=== PATIENT | male | born 1945 | race Caucasian/White ===

== ENCOUNTER → 2020-04-30 10:56 | Outpatient (BNVA) | payer MEDICARE, SELFPAY | PROVIDERS: Family Provider Nurse Practitioner; Visit Provider Urology | DX: N40.1 Benign prostatic hyperplasia with lower urinary tract symptoms (principal); N13.8 Other obstructive and reflux uropathy; R97.20 Elevated prostate specific antigen [PSA]; R35.0 Frequency of micturition | CPT/HCPCS: 81001; 84153 ==

== ENCOUNTER → 2021-04-29 10:20 | Outpatient (BNVA) | payer MEDICARE, SELFPAY | PROVIDERS: Family Provider Nurse Practitioner; PCP Internal Medicine; Visit Provider Urology | DX: N13.8 Other obstructive and reflux uropathy (principal); N40.1 Benign prostatic hyperplasia with lower urinary tract symptoms; R97.20 Elevated prostate specific antigen [PSA] | CPT/HCPCS: 81003; 84153 ==

== ENCOUNTER → 2021-05-07 09:55 | Outpatient (BNVA) | payer MEDICARE, SELFPAY | PROVIDERS: Family Provider Nurse Practitioner; PCP Internal Medicine; Visit Provider Nurse Practitioner Family | DX: I10 Essential (primary) hypertension (principal); R60.9 Edema, unspecified; Z09 Encounter for follow-up examination after completed treatment for conditions other than malignant neoplasm; Z86.69 Personal history of other diseases of the nervous system and sense organs; Z68.32 Body mass index [BMI] 32.0-32.9, adult | CPT/HCPCS: 80053; 80061; 84439; 84443; 85025 ==

== ENCOUNTER 2021-08-23 10:22 | Outpatient (CLI) | payer MEDICARE, SELFPAY ==
--- NOTE | 2021-08-23 10:33 | CT_ITS ---
WS: [id number] LDCT LUNG CANCER SCREENING HISTORY: Z72.0 - Tobacco use TECHNIQUE: Axial imaging performed from the apices to 1 cm below the costophrenic angles. Coronal and sagittal reformats are submitted with axial MIP series. All CT scans at [facility] use at least one of these dose optimization techniques: automated exposure control; mA and/or kV adjustment per patient size (includes targeted exams where dose is matched to clinical indication); or iterativ e reconstruction. DLP: 58.54 mGy.cm DIvol: 1.58 mGy COMPARISON: None available. Diagnostic quality: Satisfactory Lung Nodules: No pulmonary nodule or endobronchial lesions. Lungs: No abnormality. Heart: Mildly enlarged heart with mild coronary artery CALCIFICATION. Other findings: There is a large soft tissue mass inseparable from the RIGHT thyroid. Mass extends durham bsternally and is causing significant mass effect on the trachea. Mass extends over a length of 8.4 c m x 4.9 x 4.0 cm and contains some peripheral calcification. Favor this is probably a thyroid nodular goiter. Mild atherosclerosis aorta and ectasia. CT/CT lung screening [id number] IMPRESSION: LUNG-RADS: 1S-Negative with Significant Findings FOLLOW UP: 12 Month: Continue annual screening with LDCT OTHER FINDINGS (S MODIFIER): Large RIGHT paratracheal mass causing deviation of the trachea to the LEFT. Favor this is probably a large substernal thyroid or goiter. Recommend additional imaging at this time. Thyroid ultrasound would be helpful. This will not identified or evaluated the entire nodule as it extends substernal. Neck CT with IV contrast may also be ne cessary.
== END 2021-08-23 10:23 | disposition home or self-care (01) ==
LOC: RAD 10:27
PROVIDERS: PCP Internal Medicine; Visit Provider Nurse Practitioner Family
DX: Z12.2 Encounter for screening for malignant neoplasm of respiratory organs (principal); Z72.0 Tobacco use
CPT/HCPCS: 71271

== ENCOUNTER 2021-09-13 13:51 | Outpatient (CLI) | payer MEDICARE, SELFPAY ==
--- NOTE | 2021-09-13 14:00 | CTR_ITS ---
PROCEDURE INFORMATION: Exam: CT Neck With Contrast Exam date and time: 09/13/2021 2:00 PM Age: 76 years old Clinical indication: Mass, lump, or swelling in neck; Right; Additional info: R22.2 - localized swelling, mass and lump, trunk TECHNIQUE: Imaging protocol: Computed tomography images of the neck with contrast. Total images: 610 Radiation optimization: All CT scans at this facility use at least one of these dose optimization techniques: automated exposure control; mA and/or kV adjustment per patient size (includes targeted exams where dose is matched to clinical indication); or iterative reconstruction. Contrast material: OMNI 300; Contrast volume: 95 ml; Contrast route: INTRAVENOUS (IV); COMPARISON: CT lung screening [id number] 08/23/2021 10:38 AM RADIATION DOSE METRICS: Total DLP (mGy-cm): 506.76 FINDINGS: Nasopharynx: Unremarkable. Dental: Numerous missing teeth and dental caries. Oropharynx: Unremarkable. No significant tonsillar enlargement. Hypopharynx: Unremarkable. Larynx: Unremarkable. Normal epiglottis. Retropharyngeal space: Unremarkable. Submandibular/Parotid glands: Normal. Glands are normal in size. Thyroid: Large substernal thyroid goiter. The right thyroid measures approximately 9.8 cm x 5.3 cm x 6 cm. The left thyroid measures approximately 7.1 cm x 2.7 cm x 5.6 cm. Multinodular/multicystic thyroid goiter. Large right mixed solid and cystic thyroid nodule with peripheral dystrophic appearing calcifications estimated dimensions 6.9 cm x 3.9 cm x 4.4 cm. Lymph nodes: Unremarkable. No lymphadenopathy. Trachea: Visualized trachea is unremarkable. Lungs: Unremarkable as visualized. Bones/joints: No visible acute osseous abnormality. 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 Mild scoliotic curvature. Osteopenia. Soft tissues: Unremarkable. No significant soft tissue swelling. CT/CT neck w con* [id number] IMPRESSION: Large substernal multinodular/multicystic thyroid goiter as detailed in text above. Further evaluation with non-emergent thyroid ultrasound is recommended. COMMENTS: Consistent with the [employer]'s Incidental Findings Committee white paper (J Am Jose Raul Radiol 2015): In patients aged 35 years and older with an incidental thyroid nodule equal to or greater than 1.[address], MRI or extrathyroidal US, further evaluation with dedicated thyroid US is recommended for patients with normal life expectancy and without comorbidities. For smaller nodules without suspicious features, no further evaluation or follow up is recommended. Radiation Dose CTDIVOL = (mGy): DLP = 506.76 (mGy-cm)
[2021-09-13 15:42] LABS: Blood Urea Nitrogen 16 mg/dL (8-23)
[2021-09-13] MEDS: iohexol 300 mg/mL 100 mL Btl IV (15:59)
== END 2021-09-13 13:52 | disposition home or self-care (01) ==
LOC: RAD 13:55
PROVIDERS: PCP Family Medicine; Visit Provider Nurse Practitioner Family
DX: R22.2 Localized swelling, mass and lump, trunk (principal); R22.1 Localized swelling, mass and lump, neck; E04.2 Nontoxic multinodular goiter
CPT/HCPCS: 36415; 70491; 82565; 84520

== ENCOUNTER 2021-09-15 10:59 | Observation (INO) | payer MEDICARE, SELFPAY ==
[2021-09-15 11:09] VITALS: BP 146/100; PULSE 67; RESP 16; TEMP 36.1; O2SAT 96; BMI 32.0
--- NOTE | 2021-09-15 11:42 | W.ED.GENADLT ---
HPI - General Adult General: Chief complaint: GI Bleed Stated complaint: PASSING BLOOD IN STOOL Time Seen by Provider: 09/15/21 11:13 History of Present Illness: HPI narrative: 76-year-old male with a history of aspirin use only presenting to the emergency room with one episode of dark stool. Patient was on the toilet earlier today when he noticed dark tarry stool. Patient denies any use of iron or Pepto-Bismol. Patient has no focal complaints abdominal family history of alcohol use or cirrhosis. Patient denies any lightheadedness, nausea/vomiting, hematemesis, fever chills, or other complaints at this time. No trauma to the abdomen. Denies any anticoagulation use. Onset: earlier this AM Duration: ongoing Location:home Severity:moderate Review of Systems Narrative: Constitutional: No fever, no chills. HEENT: No vision changes CV: No chest pain, no palpitations PULM: no cough, no dyspnea. GI: No abdominal pain, no N/V/D. +melena : No dysuria MSKEL: No muscle pain SKIN: No new rashes, no lesions. NEURO: No headache, no focal weakness. HEME: No visible bruises PSYCH: Normal mood PFSH ED PFSH: Medical History BMI 32.0-32.9,adult BPH with obstruction/lower urinary tract symptoms Elevated PSA HTN (hypertension) Hyponatremia Peripheral edema Peritracheal mass Screening for malignant neoplasm of colon declined Thyroid goiter Right paratracheal / substernal Thyroid mass Tobacco use Surgical History (Updated 09/15/21 @ 15:03 by Eduar Main MD) History of rectal fissure Hx of shoulder surgery Right Hx of tonsillectomy Social History (Updated 09/15/21 @ 16:20 by Elias Urias MD) Quit status (tobacco): has quit using tobacco Year quit tobacco: 2019 Alcohol intake: current Alcohol intake frequency: 3 or more drinks per day Alcohol type: beer Adopted: No Caregiver/support person: No Lives independently: No Household members: spouse Marital status: Current occupational status: retired Physical Exam Narrative: EXAM NARRATIVE: Head: Atraumatic Eyes: PERRL, conjunctiva without injection ENT: Mucous membrane moist NECK: Supple, ROM intact LUNGS: LCTAB, no crackles/rhonchi CV: RRR ABDOMEN: Soft, nontender in all quadrants EXTREMITY: Normal ROM SKIN: No rash or erythema NEURO: Awake and alert, no focal motor deficits PSYCH: Normal mood and affect RECTAL: + mild melena and hematochezia Course Vital Signs: Vital signs: Vital Signs Temperature 98.3 F 09/16/21 11:19 Pulse Rate 65 09/16/21 11:19 Respiratory Rate 18 09/16/21 11:19 Blood Pressure 169/90 09/16/21 08:04 Pulse Oximetry 97 09/16/21 11:19 MDM - General Adult MDM Narrative: Medical decision making narrative: 76-year-old male presents the emergency room with one episode of dark tarry stool. On exam, patient is hemodynamically stable without any focal abdominal tenderness to palpation. Rectal exam is significant for hematochezia and melena H&H appears to be stable today patient does not meet criteria for type and screen. Patient received 80 mg IV Protonix. 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 Patient has a Glascow Blatchford score of 1, which indicates need for urgent endoscopy. Patient at this time elects for admission. I discussed case with Dr. Main who agrees with urgent admission. This was discussed with Dr. Jhaveri for inpatient observation, serial H&H and urgent endoscopy. Disposition: Admission Lab Data: Labs: Lab Results 09/15/21 09/15/21 09/15/21 12:21 12:21 12:21 WBC 9.1 10^3/uL 10^3/ uL (4.0-10.0) RBC 5.21 10^6/uL 10^6 /uL (4.1-5.3) Hgb 16.2 g/dL g/dL (11.7-16.6) Hct 46.5 % % (42.0-52.0) MCV 89.3 fl fl (80-94) MCH 31.1 pg pg (28.0-34.0) MCHC 34.8 g/dL g/dL (30.0-36.0) RDW 12.6 % % (12.1-15.1) Plt Count 293 10^3/cmm 10^3 /cmm (130-400) MPV 10.4 fL fL (7.4-10.4) Neut % (Auto) 71.9 % % Lymph % (Auto) 18.9 % % [place] % (Auto) 7.2 % % Eos % (Auto) 0.8 % % Baso % (Auto) 0.8 % % Neut # (Auto) 6.57 10^3/uL 10^3 /uL (1.8-7.7) Lymph # (Auto) 1.7 10^3/uL 10^3/ uL (0.8-4.8) [place] # (Auto) 0.7 10^3/uL 10^3/ uL (0.2-0.9) Eos # (Auto) 0.1 10^3/uL 10^3/ uL (0.0-0.8) Baso # (Auto) 0.1 10^3/uL 10^3/ uL (0.0-0.1) Nucleated RBC % (a uto) 0 % % Nucleated RBCs # 0.0 /100WBC /100W BC PT INR APTT Sodium 141 mmol/L mmol/L (136-145) Potassium 3.5 mmol/L mmol/L (3.5-5.1) Chloride 99 mmol/L mmol/L (98-107) Carbon Dioxide 27 mmol/L mmol/L (22-29) Anion Gap 18.5 (5-19) BUN 17 mg/dL mg/dL (8-23) Creatinine 0.8 mg/dL mg/dL (0.7-1.2) GFR Calculation Not Reportable Glucose 100 mg/dL mg/dL (65-115) Calculated Osmolal ity 294 mOsm/kg mOsm/ kg (285-295) Calcium 10.1 mg/dL mg/dL (8.5-10.5) Iron 68 ug/dL ug/dL (59-158) TIBC 314 mcg/dl mcg/dl % Saturation 21.6 % % (20-50) Unsat Iron Binding 246 ug/dL ug/dL (112-347) Ferritin 126 ng/mL ng/mL (30-400) Total Bilirubin 0.5 mg/dL mg/dL (0.15-1.2) AST 19 U/L U/L (0-40) ALT 20 U/L U/L (0-41) Alkaline Phosphata se 53 IU/L IU/L (40-130) Total Protein 7.0 g/dL g/dL (6.6-8.7) Albumin 4.3 g/dL g/dL (3.5-5.2) Globulin 2.7 g/dL g/dL (1.3-4.6) Lipase 26 U/L U/L (13-60) TSH 1.43 uIU/mL uIU/m L (0.27-4.20) Blood Type Rho(D) Type Antibody Screen 09/15/21 09/15/21 09/15/21 12:21 12:43 12:43 WBC RBC Hgb Hct MCV MCH MCHC RDW Plt Count MPV Neut % (Auto) Lymph % (Auto) [place] % (Auto) Eos % (Auto) Baso % (Auto) Neut # (Auto) Lymph # (Auto) [place] # (Auto) Eos # (Auto) Baso # (Auto) Nucleated RBC % (a uto) Nucleated RBCs # PT 12.50 SECONDS SEC ONDS (12.1-14.9) INR 0.91 (0.8-1.2) APTT 26.6 SECONDS SECO NDS (23.9-36.7) Sodium Potassium Chloride Carbon Dioxide Anion Gap BUN Creatinine GFR Calculation Glucose Calculated Osmolal ity Calcium Iron TIBC % Saturation Unsat Iron Binding Ferritin Total Bilirubin AST ALT Alkaline Phosphata se Total Protein Albumin Globulin Lipase TSH Cancelled Blood Type O Negative Rho(D) Type Negative Antibody Screen Negative Discharge Plan Discharge Patient Disposition: Admitted As Inpatient Admit Provider: Elias Urias Clinical Impression: Melena Condition: Stable Discharge Diet: Regular Discharge Activity: Resume usual activity Coding Level of Care Code 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
[2021-09-15 12:37] LABS: Basophils # 0.1 10^3/uL (0.0-0.1); Basophils % 0.8 %; Eosinophils # 0.1 10^3/uL (0.0-0.8); Eosinophils % 0.8 %; Hematocrit 46.5 % (42.0-52.0); Hemoglobin 16.2 g/dL (11.7-16.6); Lymphocytes # 1.7 10^3/uL (0.8-4.8); Lymphocytes % 18.9 %; Mean Corpuscular HGB Conc 34.8 g/dL (30.0-36.0); Mean Corpuscular Hemoglobin 31.1 pg (28.0-34.0); Mean Corpuscular Volume 89.3 fl (80-94); Mean Platelet Volume 10.4 fL (7.4-10.4); Monocytes # 0.7 10^3/uL (0.2-0.9); Monocytes % 7.2 %; Neutrophils # 6.57 10^3/uL (1.8-7.7); Neutrophils % 71.9 %; Nucleated Red Blood Cells % 0 %; Platelet Count 293 10^3/cmm (130-400); Red Blood Count 5.21 10^6/uL (4.1-5.3); Red Cell Distribution Width 12.6 % (12.1-15.1); White Blood Count 9.1 10^3/uL (4.0-10.0)
[2021-09-15] MEDS: pantoprazole 40 mg SDV 80 MG IVP (13:01)
[2021-09-15 13:05] LABS: INR 0.91 (0.8-1.2); Partial Thromboplastin Time 26.6 SECONDS (23.9-36.7)
[2021-09-15 13:32] LABS: Alanine Aminotransferase 20 U/L (0-41); Albumin Level 4.3 g/dL (3.5-5.2); Alkaline Phosphatase 53 IU/L (40-130); Aspartate Amino Transferase 19 U/L (0-40); Blood Urea Nitrogen 17 mg/dL (8-23); Calcium 10.1 mg/dL (8.5-10.5); Carbon Dioxide 27 mmol/L (22-29); Chloride 99 mmol/L (98-107); Globulin 2.7 g/dL (1.3-4.6); Glucose 100 mg/dL (65-115); Lipase 26 U/L (13-60); Osmolality Calculated 294 mOsm/kg (285-295); Sodium 141 mmol/L (136-145); Total Bilirubin 0.5 mg/dL (0.15-1.2)
[2021-09-15 13:57] LABS: Anion Gap 18.5 (5-19); Potassium 3.5 mmol/L (3.5-5.1)
--- NOTE | 2021-09-15 14:15 | PC.PHAR ---
Addendum entered by Carlota Flores 09/15/21 14:20: PT STATES HE IS NO LONGER TAKING KCL 10MEQ DAILY LAST FILLED ON 05/07/21 90D/S Original Note: PT STATES HE TAKES CARE OF HIS OWN MEDICATIONS-PT HAS BEEN TAKING THE LISINOPRIL/HCTZ 20-25MG TAB WITH 2 OF THE 10MG TABS OF LISINOPRIL HE HAD FROM A PREVIOUS RX PT STATES WHEN HE GETS DONE USING THE LISINOPRIL/HCTZ 20-25MG AND 2 OF THE 10MG TABS OF LISINOPRIL TO MAKE 40MG OF LISINOPRIL AND 25MG HCTZ HE WILL START TAKING THE LISINOPRIL 40MG TABS AT HS WITH HCTZ 25MG HS-NOTES ARE MADE IN THE PHARMACY COMMENTS
--- NOTE | 2021-09-15 14:40 | PM.CONSULT ---
Providers/Reason For Consult Consulting Physician/Specialty*: General Surgery Eduar Main MD Reason for Consult*: Requesting esophagogastroduodenoscopy for melena. Primary Care Provider: Ashwini Mercedes NP History of Present Illness History of Present Illness Misael Faye is a 76 year old male who presented to the emergency room today after having 2 black stools this morning. He said this is the first time it has ever happened to him. He had a sizable bowel movement this morning which was very dark in color but left somewhat of a pinkish tinge in the commode. He then had a subsequent bowel movement that was smaller but did the same thing. His rectal exam apparently revealed some heme positive stool. He denies any abdominal pain or anorectal discomfort. He has no known history of peptic ulcer disease. He has never had endoscopy in the past and says that he does not ever want to have a colonoscopy. He takes a baby aspirin every day but otherwise takes perhaps one ibuprofen tablet twice a week for some knee discomfort. He is not in the habit of taking any other NSAIDs. He says back in the 1970s he had some epigastric discomfort and was taking regular antacids at that time; he always wondered if he could have had an ulcer but he has not had anything like that lately. The patient denies any known family history of GI neoplasia. The patient does not take any anticoagulants and denies any history of iron or Pepto-Bismol, etc. intake. He says that he did eat some blackberry cobbler yesterday. Review of Systems Const: Denies: fever(s) GI: Denies: abdominal pain, nausea, vomiting or hematemesis Musc: Reports: joint pain Meds/Allergies Home Medications and Allergies Home Medications Medication Instructions Recorded Confirmed Last Taken Type glucosamine sulfate 500 mg tablet 500 mg PO QAM tab 04/30/20 09/15/21 09/15/21 07:30 History lutein 20 mg capsule 20 mg PO QAM 04/30/20 09/15/21 09/15/21 07:30 History vitamin B complex 1 cap PO QAM 04/30/20 09/15/21 09/15/21 07:30 History tamsulosin 0.4 mg capsule 0.4 mg PO BID #180 cap 12/21/20 09/15/21 09/15/21 07:30 Rx aspirin 81 mg tablet,delayed 81 mg PO QAM 04/29/21 09/15/21 09/15/21 07:30 History release fexofenadine [Leni Allergy] 180 mg PO QAM 09/15/21 09/15/21 09/15/21 History finasteride 5 mg PO QAM 09/15/21 09/15/21 09/15/21 07:30 History hydrochlorothiazide 25 mg PO BEDTIME 09/15/21 09/15/21 09/14/21 History lisinopril 40 mg PO BEDTIME 09/15/21 09/15/21 09/14/21 History Allergies Allergy/AdvReac Type Severity Reaction Status Date / Time amoxicillin Allergy Unknown Unknown Verified 09/15/21 14:19 PFSH Acute PFSH: Medical History (Updated 09/15/21 @ 15:04 by Eduar Main MD) BPH with obstruction/lower urinary tract symptoms Elevated PSA HTN (hypertension) Thyroid goiter Right paratracheal / substernal Surgical History (Updated 09/15/21 @ 15:03 by Eduar Main MD) History of rectal fissure Hx of shoulder surgery Right Hx of tonsillectomy Social History Quit status (tobacco): has quit using tobacco Year quit tobacco: 2019 Alcohol intake: current Alcohol intake frequency: 3 or more drinks per day Adopted: No Caregiver/support person: No Lives independently: No Household members: spouse Marital status: Current occupational status: retired Vitals/I&O/Wt Last Vital Signs Temp 97.0 F L 09/15/21 11:09 Pulse 67 09/15/21 11:09 Resp 16 09/15/21 11:09 BP 146/100 09/15/21 11:09 Pulse Ox 96 09/15/21 11:09 Weight last 48 hrs Weight 243 lb Physical Exam Narrative: EXAM NARRATIVE: The patient was encountered in his room in the emergency department. He is sitting up on the edge of his gurney, still in street clothes. He is in no distress. The pupils are equal. No carotid bruits are heard. The lungs are clear. The heart is regular. The abdomen is mildly obese but is soft and completely nontender. I cannot feel any obvious masses. The extremities reveal no edema. Neurologically the patient appears to be grossly intact. A&P Assessment and plan (1) Melena: This is the first time that this has ever happened to the patient. We discussed the possible causes of melena. He has otherwise been symptom free. An EGD was discussed with him in some detail. He seems to understand and is agreeable to proceeding. I am going to arrange for an EGD early tomorrow morning. Status: Acute Consult Attestations Medical Necessity Statement: See admitting service's notation. 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
[2021-09-15] MEDS: LORazepam 2 mg Tablet PO (14:41)
--- NOTE | 2021-09-15 15:12 | PM.CONSULT ---
Providers/Reason For Consult Primary Care Provider: Ashwini Mercedes NP History of Present Illness History of Present Illness Misael Faye is a 76 year old male Meds/Allergies Home Medications and Allergies Home Medications Medication Instructions Recorded Confirmed Last Taken Type glucosamine sulfate 500 mg tablet 500 mg PO QAM tab 04/30/20 09/15/21 09/15/21 07:30 History lutein 20 mg capsule 20 mg PO QAM 04/30/20 09/15/21 09/15/21 07:30 History vitamin B complex 1 cap PO QAM 04/30/20 09/15/21 09/15/21 07:30 History tamsulosin 0.4 mg capsule 0.4 mg PO BID #180 cap 12/21/20 09/15/21 09/15/21 07:30 Rx aspirin 81 mg tablet,delayed 81 mg PO QAM 04/29/21 09/15/21 09/15/21 07:30 History release fexofenadine [Leni Allergy] 180 mg PO QAM 09/15/21 09/15/21 09/15/21 History finasteride 5 mg PO QAM 09/15/21 09/15/21 09/15/21 07:30 History hydrochlorothiazide 25 mg PO BEDTIME 09/15/21 09/15/21 09/14/21 History lisinopril 40 mg PO BEDTIME 09/15/21 09/15/21 09/14/21 History Allergies Allergy/AdvReac Type Severity Reaction Status Date / Time amoxicillin Allergy Unknown Unknown Verified 09/15/21 14:19 PFSH Acute PFSH: Medical History (Updated 09/15/21 @ 15:04 by Eduar Main MD) BPH with obstruction/lower urinary tract symptoms Elevated PSA HTN (hypertension) Thyroid goiter Right paratracheal / substernal Surgical History (Updated 09/15/21 @ 15:03 by Eduar Main MD) History of rectal fissure Hx of shoulder surgery Right Hx of tonsillectomy Social History Quit status (tobacco): has quit using tobacco Year quit tobacco: 2019 Alcohol intake: current Alcohol intake frequency: 3 or more drinks per day Adopted: No Caregiver/support person: No Lives independently: No Household members: spouse Marital status: Current occupational status: retired Vitals/I&O/Wt Last Vital Signs Temp 97.0 F L 09/15/21 11:09 Pulse 67 09/15/21 11:09 Resp 16 09/15/21 11:09 BP 146/100 09/15/21 11:09 Pulse Ox 96 09/15/21 11:09 Weight last 48 hrs Weight 110.223 kg Coding Level of Care Code 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
--- NOTE | 2021-09-15 16:17 | PM.HP ---
Providers/Chief Complaint Primary Care Provider: Ashwini Mercedes NP Chief Complaint: PASSING BLOOD IN STOOL History of Present Illness Misael Faye is a 76 year old male with past medical history of hypertension, possible thyroid mass under investigation presented to the ER today after having 2 episodes of black bowel movements. Patient states he was at his baseline health last night. Today morning when he woke up he had 2 well-formed bowel movements which are black in color so he presented to the ER. Patient states he has been having constipation for last few days so he ate dates yesterday to have good bowel movements. Patient denies any abdominal pain, bleeding from anywhere else, previous history of GI bleed, nausea, vomiting, hematemesis, colonoscopy in the past, dizziness, chest pain, shortness of breath. He states he takes up to 1-2 bottles of beer daily but no hard liquor. He smokes around 3 cigarettes a week. Has never had colonoscopy or EGD in the past. Denies any significant family history of cancers. Hemoglobin the ER on presentation 16.2, BUN of 17, normal creatinine. Hospitalist service was consulted for possible admission for EGD/colonoscopy. Review of Systems General: Reports: 10 or more systems reviewed and unremarkable except in HPI and below Const: Denies: fever(s), chills, body aches, change in appetite, change in weight, malaise, night sweats, diaphoresis, change in sleep pattern, daytime sleepiness or snoring Eyes: Denies: change in vision, blurry vision, photophobia, eye discomfort or eye discharge ENMT: Denies: throat pain, enlarged tonsils, hoarseness, mouth pain, oral sores, dry mouth, tinnitus, nasal congestion or post nasal drip Card: Denies: chest pain, palpitations, irregular heart rhythm, edema, swelling of feet/ankles, lightheadedness, syncope, pre-syncope, dyspnea on exertion, orthopnea, leg pain with exertion or acrocyanosis Resp: Denies: dyspnea, productive cough, non-productive cough, wheezing, stridor, pain on inspiration, change in phlegm color, hemoptysis or chest congestion GI: Denies: abdominal pain, nausea, vomiting, hematemesis, coffee ground emesis, dysphagia, heartburn, diarrhea, constipation, bloating, GI cramping, change in bowel habits, pain on defecation, hematochezia or melena : Denies: flank pain, difficulty urinating, dysuria, urinary frequency, urinary urgency, urinary hesitancy, urinary dribbling, difficulty starting urination, change in urine stream, nocturia or hematuria Musc: Denies: neck pain, back pain, extremity pain, joint pain, joint swelling, joint redness, joint stiffness or limited range of motion Neuro: Denies: headache(s), numbness in extremities, weakness in extremities, sensory changes, lack of coordination, difficulty walking, frequent falls, dizziness, vertigo, confusion, Slurred speech present, difficulty communicating thoughts or seizure-like activity Psych: Denies: anxiety, depression, mood swings, panic attacks, hopelessness or irritability Endo: Denies: polyuria, polydipsia, tired all the time, cold intolerance, excessive sweating, flushing or heat intolerance Edgar/Lymph: Denies: easy bruising or easy bleeding All/Imm: Denies: tongue swelling, facial swelling or acute wheezing Medications/Allergies Home Medications Medication Instructions Recorded Confirmed Last Taken Type glucosamine sulfate 500 mg tablet 500 mg PO QAM tab 04/30/20 09/15/21 09/15/21 07:30 History lutein 20 mg capsule 20 mg PO QAM 04/30/20 09/15/21 09/15/21 07:30 History vitamin B complex 1 cap PO QAM 04/30/20 09/15/21 09/15/21 07:30 History tamsulosin 0.4 mg capsule 0.4 mg PO BID #180 cap 12/21/20 09/15/21 09/15/21 07:30 Rx aspirin 81 mg tablet,delayed 81 mg PO QAM 04/29/21 09/15/21 09/15/21 07:30 History release fexofenadine [Leni Allergy] 180 mg PO QAM 09/15/21 09/15/21 09/15/21 History finasteride 5 mg PO QAM 09/15/21 09/15/21 09/15/21 07:30 History hydrochlorothiazide 25 mg PO BEDTIME 09/15/21 09/15/21 09/14/21 History lisinopril 40 mg PO BEDTIME 09/15/21 09/15/21 09/14/21 History Allergies Allergy/AdvReac Type Severity Reaction Status Date / Time amoxicillin Allergy Unknown Unknown Verified 09/15/21 14:19 PFSH Acute PFSH: Medical History BMI 32.0-32.9,adult BPH with obstruction/lower urinary tract symptoms Elevated PSA HTN (hypertension) Hyponatremia Peripheral edema Peritracheal mass Screening for malignant neoplasm of colon declined Thyroid goiter Right paratracheal / substernal Thyroid mass Tobacco use Surgical History (Updated 09/15/21 @ 15:03 by Eduar Main MD) History of rectal fissure Hx of shoulder surgery Right Hx of tonsillectomy Social History (Updated 09/15/21 @ 16:20 by Elias Urias MD) Quit status (tobacco): has quit using tobacco Year quit tobacco: 2019 Alcohol intake: current Alcohol intake frequency: 3 or more drinks per day Alcohol type: beer Adopted: No Caregiver/support person: No Lives independently: No Household members: spouse Marital status: Current occupational status: retired Vitals/I&O/Wt Last Vital Signs Temp 97.0 F L 09/15/21 11:09 Pulse 67 09/15/21 11:09 Resp 16 09/15/21 11:09 BP 146/100 09/15/21 11:09 Pulse Ox 96 09/15/21 11:09 Weight last 48 hrs Weight 110.223 kg Physical Exam Narrative: EXAM NARRATIVE: General: No acute distress, AO x3 HEENT: PERRLA, pupils bilaterally equal and reactive Chest: Normal vesicular breath sounds, no added sounds, equal good air entry bilaterally CVS: S1-S2 regular, no murmurs, no tachycardia, no gallops, no rubs Abdomen: Soft, nontender, no organomegaly, bowel sounds present Neuro: No focal deficits, no facial deformity, AO x3, power 5/5 in all limbs Data : 09/15/21 12:21 09/15/21 12:21 A&P Assessment and plan (1) Melena: Status: Suspected (2) HTN (hypertension): Status: Acute Qualifiers: Hypertension type: essential hypertension Qualified Code(s): I10 - Essential (primary) hypertension Additional A&P Information Admit under observation. Protonix 40 mg IV twice daily. Cardiac diet. N.p.o. after midnight for EGD. Surgery has been consulted. Zofran as needed. Repeat CBC, CMP tomorrow morning. Check iron panel, ferritin, TSH, lipid panel, HbA1c. For hypertension: Goal blood pressure less than 140/90 mmHg. Continue with home dose of lisinopril. BPH: Continue home dose of Flomax. Full code. Protonix for PUD prophylaxis. SCDs. Attestations Medical Necessity Statement*: Less than 2 midnights for evaluation for possible GI bleed Time Spent in Patient Care: Greater than 35 minutes (>than 50% of time spent in counselling and/or direct pt care on unit). Coding Level of Care Code Acute Tester Compressed Gases for Chg Fwd Diagnoses Melena K92.1 HTN (hypertension) I10 Hypertension type: essential hypertension
[2021-09-15 16:54] LABS: Ferritin 126 ng/mL (30-400); Iron 68 ug/dL (59-158); Percent Saturation 21.6 % (20-50); Thyroid Stimulating Hormone 1.43 uIU/mL (0.27-4.20); Total Iron Binding Capacity 314 mcg/dl; Unsaturated Iron Binding 246 ug/dL (112-347)
[2021-09-15 20:00] VITALS: BP 177/94; PULSE 67; RESP 16; TEMP 36.8; O2SAT 96
[2021-09-15] MEDS: tamsulosin 0.4 mg Capsule PO (20:48)
[2021-09-15] MEDS: polyethylene glycol 3350 Pkt 17 gm PO (20:48)
[2021-09-15] MEDS: lisinopril 20 mg Tablet 40 MG PO (20:48)
[2021-09-15] MEDS: ferrous gluconate 324 mg Tablet PO (20:48)
[2021-09-15] MEDS: magnesium hydroxide 30 mL UDC 15 ML PO (20:48)
[2021-09-15] MEDS: sodium chloride 0.9% 1,000 ML 50 ML IV (20:49)
[2021-09-15 20:50] VITALS: O2SAT 95
[2021-09-15 21:05] VITALS: BMI 32.0
[2021-09-16] VITALS (7 sets, daily range): BP systolic 133–177; BP diastolic 81–102; PULSE 65–76; RESP 16–20; TEMP 36.7–36.8; O2SAT 93–97
[2021-09-16 06:24] LABS: Basophils # 0.1 10^3/uL (0.0-0.1); Eosinophils # 0.2 10^3/uL (0.0-0.8); Eosinophils % 2.1 %; Hematocrit 43.9 % (42.0-52.0); Hemoglobin 14.6 g/dL (11.7-16.6); Lymphocytes # 1.5 10^3/uL (0.8-4.8); Lymphocytes % 19.3 %; Mean Corpuscular HGB Conc 33.3 g/dL (30.0-36.0); Mean Corpuscular Hemoglobin 30.7 pg (28.0-34.0); Mean Corpuscular Volume 92.2 fl (80-94); Mean Platelet Volume 10.1 fL (7.4-10.4); Monocytes # 0.5 10^3/uL (0.2-0.9); Monocytes % 6.7 %; Neutrophils # 5.57 10^3/uL (1.8-7.7); Neutrophils % 70.5 %; Nucleated Red Blood Cells % 0 %; Platelet Count 273 10^3/cmm (130-400); Red Blood Count 4.76 10^6/uL (4.1-5.3); Red Cell Distribution Width 12.8 % (12.1-15.1); White Blood Count 7.9 10^3/uL (4.0-10.0)
[2021-09-16 06:44] LABS: Estmated Average Glucose 117; Hemoglobin A1C 5.7 % (4.0-6.0)
[2021-09-16 06:53] LABS: Alanine Aminotransferase 15 U/L (0-41); Albumin Level 3.5 g/dL (3.5-5.2); Alkaline Phosphatase 44 IU/L (40-130); Anion Gap 12.4 (5-19); Aspartate Amino Transferase 15 U/L (0-40); Blood Urea Nitrogen 16 mg/dL (8-23); Calcium 9.2 mg/dL (8.5-10.5); Carbon Dioxide 28 mmol/L (22-29); Chloride 104 mmol/L (98-107); Chol HDL Ratio 4.22 mg/dL (1.0-5.00); Cholesterol 194 mg/dL (0-200); Globulin 2.2 g/dL (1.3-4.6); Glucose 111 mg/dL (65-115); HDL Cholesterol 46 mg/dL (60-100); LDL Cholesterol Calculated 119 mg/dL (50-129); Osmolality Calculated 294 mOsm/kg (285-295); Potassium 3.4 mmol/L (3.5-5.1); Sodium 141 mmol/L (136-145); Total Bilirubin 0.6 mg/dL (0.15-1.2); Total Protein 5.7 g/dL (6.6-8.7); Triglycerides 147 mg/dL (0-150); VLDL Cholestrol Calculation 29 mg/dL (0-30)
--- NOTE | 2021-09-16 06:55 | ANES.PREANE2 ---
Pre-Anesthetic Assessment Pre-Anesthetic Assessment: Height/Weight: Height 1.85 m Weight 110.223 kg Temp Pulse Resp BP Pulse Ox 98.0 F 67 18 177/102 93 09/16/21 06:41 09/16/21 06:41 09/16/21 06:41 09/16/21 06:41 09/16/21 06:41 Preop Diagnosis: Blood in stools Proposed Procedure: Operation Date: 09/16/21 07:15 Proposed Procedures p EGD(Not Applicable) - Eduar Main MD Was Beta Iraida taken within 24 hours: N/A Was Clonidine taken within 24 hours: N/A Last intake: Intake Last Liquid Date 09/15/21 Last Liquid Time 23:00 Last Solid Date 09/15/21 Last Solid Time 18:00 Exam: Pre-Anes Outpt Exam: alert, oriented x 3, clear to auscultation bilaterally and regular rate & rhythm Airway: Submandibular: WNL Cervical ROM: WNL MP: 2 Additional comments: several missing teeth History/ROS: No significant history except as noted and No significant complaints Pulmonary: Pulmonary: Cough, Orthopnea and SOB CV/HEM: CV/HEM: HTN : : None reported Hepatic: Hepatic: None reported GI: GI: None reported Metabolic: Metabolic: Thyroid Comments: goiter Musc/skel: Musc/skel: None reported Neuropsych: Neuropsych: None reported Anesthetic Plan: ASA status: 3 Anesthesia: Anesthesia Evaluation and MAC Risk of > 500 ml blood loss (7ml/kg in children): No Meds/Allergies Current Medications: Current Medications Generic Name Dose Route Start Last Admin Trade Name Thomasq PRN Reason Stop Dose Admin Ferrous Gluconate 324 mg 09/15/21 18:50 09/15/21 20:48 Ferrous Gluconat e 324 Mg Tablet PO 324 mg BIDWM FRANCO Administration Sodium Chloride 1,000 mls @ 50 ml s/hr 09/15/21 16:16 09/15/21 20:49 Sodium Chloride 0.9% IV 50 mls/hr .Q20H FRANCO Administration Lisinopril 40 mg 09/15/21 21:00 09/15/21 20:48 Lisinopril 20 Mg Tablet PO 40 mg BEDTIME FRANCO Administration Magnesium Hydroxid e 15 ml 09/15/21 21:00 09/15/21 20:48 Magnesium Hydrox duane 30 Ml Udc PO 15 ml BEDTIME FRANCO Administration Non-Formulary Medi cation 1 cap 09/16/21 06:00 09/16/21 05:19 Vitamin B Comple x PO Not Given QAM FRANCO Tamsulosin HCl 0.4 mg 09/15/21 18:50 09/15/21 20:48 Tamsulosin 0.4 M g Capsule PO 0.4 mg BID FRANCO Administration PFSH Anesthesia PFSH: Medical History BMI 32.0-32.9,adult BPH with obstruction/lower urinary tract symptoms Elevated PSA HTN (hypertension) Hyponatremia Peripheral edema Peritracheal mass Screening for malignant neoplasm of colon declined Thyroid goiter Right paratracheal / substernal Thyroid mass Tobacco use Surgical History (Updated 09/15/21 @ 15:03 by Eduar Main MD) History of rectal fissure Hx of shoulder surgery Right Hx of tonsillectomy Social History (Updated 09/15/21 @ 16:20 by Elias Urias MD) Quit status (tobacco): has quit using tobacco Year quit tobacco: 2019 Alcohol intake: current Alcohol intake frequency: 3 or more drinks per day Alcohol type: beer Adopted: No Caregiver/support person: No Lives independently: No Household members: spouse Marital status: Current occupational status: retired Data Anesthesia CBC & Chem 7: 09/16/21 05:37 09/16/21 05:37 Other Labs: Laboratory Results - last 48 hr 09/15/21 09/15/21 09/15/21 12:21 12:21 12:21 WBC 9.1 RBC 5.21 Hgb 16.2 Hct 46.5 MCV 89.3 MCH 31.1 MCHC 34.8 RDW 12.6 Plt Count 293 MPV 10.4 Neut % (Auto) 71.9 Lymph % (Auto) 18.9 [place] % (Auto) 7.2 Eos % (Auto) 0.8 Baso % (Auto) 0.8 Neut # (Auto) 6.57 Lymph # (Auto) 1.7 [place] # (Auto) 0.7 Eos # (Auto) 0.1 Baso # (Auto) 0.1 Nucleated RBC % (auto) 0 Nucleated RBCs # 0.0 PT INR APTT Sodium 141 Potassium 3.5 Chloride 99 Carbon Dioxide 27 Anion Gap 18.5 BUN 17 Creatinine 0.8 GFR Calculation Not Reportable Glucose 100 Estimat Average Glucose Hemoglobin A1c Calculated Osmolality 294 Calcium 10.1 Iron 68 TIBC 314 % Saturation 21.6 Unsat Iron Binding 246 Ferritin 126 Total Bilirubin 0.5 AST 19 ALT 20 Alkaline Phosphatase 53 Total Protein 7.0 Albumin 4.3 Globulin 2.7 Triglycerides Cholesterol LDL Cholesterol, Calc Total VLDL Cholesterol HDL Cholesterol Cholesterol/HDL Ratio Lipase 26 TSH 1.43 Blood Type Rho(D) Type Antibody Screen 09/15/21 09/15/21 09/15/21 12:21 12:43 12:43 WBC RBC Hgb Hct MCV MCH MCHC RDW Plt Count MPV Neut % (Auto) Lymph % (Auto) [place] % (Auto) Eos % (Auto) Baso % (Auto) Neut # (Auto) Lymph # (Auto) [place] # (Auto) Eos # (Auto) Baso # (Auto) Nucleated RBC % (auto) Nucleated RBCs # PT 12.50 INR 0.91 APTT 26.6 Sodium Potassium Chloride Carbon Dioxide Anion Gap BUN Creatinine GFR Calculation Glucose Estimat Average Glucose Hemoglobin A1c Calculated Osmolality Calcium Iron TIBC % Saturation Unsat Iron Binding Ferritin Total Bilirubin AST ALT Alkaline Phosphatase Total Protein Albumin Globulin Triglycerides Cholesterol LDL Cholesterol, Calc Total VLDL Cholesterol HDL Cholesterol Cholesterol/HDL Ratio Lipase TSH Cancelled Blood Type O Negative Rho(D) Type Negative Antibody Screen Negative 09/16/21 09/16/21 09/16/21 05:37 05:37 05:37 WBC 7.9 RBC 4.76 Hgb 14.6 Hct 43.9 MCV 92.2 MCH 30.7 MCHC 33.3 RDW 12.8 Plt Count 273 MPV 10.1 Neut % (Auto) 70.5 Lymph % (Auto) 19.3 [place] % (Auto) 6.7 Eos % (Auto) 2.1 Baso % (Auto) 1.0 Neut # (Auto) 5.57 Lymph # (Auto) 1.5 [place] # (Auto) 0.5 Eos # (Auto) 0.2 Baso # (Auto) 0.1 Nucleated RBC % (auto) 0 Nucleated RBCs # 0.0 PT INR APTT Sodium 141 Potassium 3.4 L Chloride 104 Carbon Dioxide 28 Anion Gap 12.4 BUN 16 Creatinine 0.7 GFR Calculation Not Reportable Glucose 111 Estimat Average Glucose 117 Hemoglobin A1c 5.7 Calculated Osmolality 294 Calcium 9.2 Iron TIBC % Saturation Unsat Iron Binding Ferritin Total Bilirubin 0.6 AST 15 ALT 15 Alkaline Phosphatase 44 Total Protein 5.7 L Albumin 3.5 Globulin 2.2 Triglycerides 147 Cholesterol 194 LDL Cholesterol, Calc 119 Total VLDL Cholesterol 29 HDL Cholesterol 46 L Cholesterol/HDL Ratio 4.22 Lipase TSH Blood Type Rho(D) Type Antibody Screen Cardiac Studies: No Data to Display
[2021-09-16] MEDS: sodium chloride 0.9% 1,000 ML 30 ML IV (07:08)
--- NOTE | 2021-09-16 07:08 | PM.PN ---
Subjective Subjective: Interval history: The patient continues to be asymptomatic. He has not had any further bowel movements since I talked to him yesterday. Vitals/I&O/Wt Last Vital Signs Temp 98.0 F 09/16/21 06:41 Pulse 67 09/16/21 06:41 Resp 18 09/16/21 06:41 BP 177/102 09/16/21 06:41 Pulse Ox 93 09/16/21 06:41 Weight last 48 hrs Weight 243 lb Weight 243 lb Physical Exam Narrative: EXAM NARRATIVE: Abdomen remains soft and nontender. Data : 09/16/21 05:37 09/16/21 05:37 A&P Assessment and plan (1) Melena: This is the first time that this has ever happened to the patient. We discussed the possible causes of melena. He has otherwise been symptom free. EGD this morning. Status: Suspected Attestations Medical Necessity Statement*: See admitting service's notation. Coding Level of Care Code Acute Mobile Application Development Lead for Michael Ervin Diagnoses Melena K92.1
--- NOTE | 2021-09-16 07:48 | SUR.PHASEI ---
report given to floor nurse. pt tranported back to floor via stretcher.
[2021-09-16] MEDS: tamsulosin 0.4 mg Capsule PO (09:33)
--- NOTE | 2021-09-16 09:52 | P.DS_ITS ---
Discharge Providers Date of Admission: 09/15/21 17:31 Date of Discharge: September 16, 2021 Attending Provider at Admission: Elias Urias MD Attending Provider at Discharge: Alfie Barraza MD Primary Care Provider: Ashwini Mercedes NP Diagnoses at Discharge Discharge Diagnosis (1) Melena: Status: Suspected Reason for Visit Reason for Visit: PASSING BLOOD IN STOOL Hospital Course Hospital Course HPI Done By Dr. Urias 76 year old male with past medical history of hypertension, possible thyroid mass under investigation presented to the ER today after having 2 episodes of black bowel movements. Patient states he was at his baseline health last night. Today morning when he woke up he had 2 well-formed bowel movements which are black in color so he presented to the ER. Patient states he has been having constipation for last few days so he ate dates yesterday to have good bowel movements. Patient denies any abdominal pain, bleeding from anywhere else, previous history of GI bleed, nausea, vomiting, hematemesis, colonoscopy in the past, dizziness, chest pain, shortness of breath. He states he takes up to 1-2 bottles of beer daily but no hard liquor. He smokes around 3 cigarettes a week. Has never had colonoscopy or EGD in the past. Denies any significant family history of cancers. Hemoglobin the ER on presentation 16.2, BUN of 17, normal creatinine. Hospital Course: patient was kept NPO overnight and EGD was done in the morning:Which was normal. H & H has remained sable during the hospital stay.Patient has remained hemodynamically sable during the hospital stay. He is being discharged in stable condition to home. Home medications have been resumed. Physical Exam Const: COMMON NORMALS: patient oriented x3 HENMT: COMMON NORMALS: normocephalic and atraumatic HEAD & SCALP: normocephalic and atraumatic Resp: COMMON NORMALS: clear to auscultation bilaterally EFFORT & INSPECTION: Yes symmetric chest movement AUSCULTATION: clear to auscultation bilaterally Cardio: COMMON NORMALS: regular rate, regular rhythm, S1 normal heart sound present, S2 normal heart sound present, No gallops present (Cardio), No murmurs present (Cardio), No rub (Cardio) and Peripheral pulses 2+ throughout RATE: regular rate RHYTHM: regular rhythm HEART SOUNDS: S1 normal heart sound present and S2 normal heart sound present PERIPHERAL PULSES: Peripheral pulses 2+ throughout GI: COMMON NORMALS: Normal to inspection, nondistended, normoactive bowel sounds present, Soft to palpation, non-tender, No hepatosplenomegaly present and no masses AUSCULTATION: Yes normoactive bowel sounds PALPATION: Yes Soft to palpation and Yes No hepatosplenomegaly present RECTAL EXAM: Yes deferred Extremity: COMMON NORMALS: no clubbing, cyanosis or edema and no pedal edema Neuro: COMMON NORMALS: patient oriented x3 Discharge Data Data Completed and Pending: Labs from last 24 hours 09/16/21 09/16/21 09/16/21 05:37 05:37 05:37 WBC 7.9 RBC 4.76 Hgb 14.6 Hct 43.9 MCV 92.2 MCH 30.7 MCHC 33.3 RDW 12.8 Plt Count 273 MPV 10.1 Neut % (Auto) 70.5 Lymph % (Auto) 19.3 [place] % (Auto) 6.7 Eos % (Auto) 2.1 Baso % (Auto) 1.0 Neut # (Auto) 5.57 Lymph # (Auto) 1.5 [place] # (Auto) 0.5 Eos # (Auto) 0.2 Baso # (Auto) 0.1 Nucleated RBC % (a uto) 0 Nucleated RBCs # 0.0 PT INR APTT Sodium 141 Potassium 3.4 L Chloride 104 Carbon Dioxide 28 Anion Gap 12.4 BUN 16 Creatinine 0.7 GFR Calculation Not Reportable Glucose 111 Estimat Average Gl ucose 117 Hemoglobin A1c 5.7 Calculated Osmolal ity 294 Calcium 9.2 Iron TIBC % Saturation Unsat Iron Binding Ferritin Total Bilirubin 0.6 AST 15 ALT 15 Alkaline Phosphata se 44 Total Protein 5.7 L Albumin 3.5 Globulin 2.2 Triglycerides 147 Cholesterol 194 LDL Cholesterol, C alc 119 Total VLDL Cholest arely 29 HDL Cholesterol 46 L Cholesterol/HDL Ra cookie 4.22 Lipase TSH Blood Type Rho(D) Type Antibody Screen 09/15/21 09/15/21 09/15/21 12:43 12:43 12:21 WBC RBC Hgb Hct MCV MCH MCHC RDW Plt Count MPV Neut % (Auto) Lymph % (Auto) [place] % (Auto) Eos % (Auto) Baso % (Auto) Neut # (Auto) Lymph # (Auto) [place] # (Auto) Eos # (Auto) Baso # (Auto) Nucleated RBC % (a uto) Nucleated RBCs # PT 12.50 INR 0.91 APTT 26.6 Sodium Potassium Chloride Carbon Dioxide Anion Gap BUN Creatinine GFR Calculation Glucose Estimat Average Gl ucose Hemoglobin A1c Calculated Osmolal ity Calcium Iron TIBC % Saturation Unsat Iron Binding Ferritin Total Bilirubin AST ALT Alkaline Phosphata se Total Protein Albumin Globulin Triglycerides Cholesterol LDL Cholesterol, C alc Total VLDL Cholest arely HDL Cholesterol Cholesterol/HDL Ra cookie Lipase TSH Cancelled Blood Type O Negative Rho(D) Type Negative Antibody Screen Negative 09/15/21 09/15/21 09/15/21 12:21 12:21 12:21 WBC 9.1 RBC 5.21 Hgb 16.2 Hct 46.5 MCV 89.3 MCH 31.1 MCHC 34.8 RDW 12.6 Plt Count 293 MPV 10.4 Neut % (Auto) 71.9 Lymph % (Auto) 18.9 [place] % (Auto) 7.2 Eos % (Auto) 0.8 Baso % (Auto) 0.8 Neut # (Auto) 6.57 Lymph # (Auto) 1.7 [place] # (Auto) 0.7 Eos # (Auto) 0.1 Baso # (Auto) 0.1 Nucleated RBC % (a uto) 0 Nucleated RBCs # 0.0 PT INR APTT Sodium 141 Potassium 3.5 Chloride 99 Carbon Dioxide 27 Anion Gap 18.5 BUN 17 Creatinine 0.8 GFR Calculation Not Reportable Glucose 100 Estimat Average Gl ucose Hemoglobin A1c Calculated Osmolal ity 294 Calcium 10.1 Iron 68 TIBC 314 % Saturation 21.6 Unsat Iron Binding 246 Ferritin 126 Total Bilirubin 0.5 AST 19 ALT 20 Alkaline Phosphata se 53 Total Protein 7.0 Albumin 4.3 Globulin 2.7 Triglycerides Cholesterol LDL Cholesterol, C alc Total VLDL Cholest arely HDL Cholesterol Cholesterol/HDL Ra cookie Lipase 26 TSH 1.43 Blood Type Rho(D) Type Antibody Screen Vitals: Last Vital Signs Temp 98.3 F 09/16/21 08:04 Pulse 65 09/16/21 08:04 Resp 18 09/16/21 08:04 BP 169/90 09/16/21 08:04 Pulse Ox 97 09/16/21 08:04 Discharge Plan Discharge Patient Disposition: Home Condition: Stable Prescriptions: Continued glucosamine sulfate [Glucosamine] 500 mg tablet 500 mg PO QAM RF: 0 lutein 20 mg capsule 20 mg PO QAM RF: 0 vitamin B complex Capsule 1 cap PO QAM RF: 0 aspirin [Adult Aspirin Regimen] 81 mg tablet,delayed release (DR/EC) 81 mg PO QAM RF: 0 tamsulosin 0.4 mg capsule 0.4 mg PO BID Qty: 180 RF: 3 Leni Allergy 180 mg Tablet 180 mg PO QAM RF: 0 finasteride 5 mg tablet 5 mg PO QAM RF: 0 hydrochlorothiazide 25 mg tablet 25 mg PO BEDTIME RF: 0 lisinopril 40 mg tablet 40 mg PO BEDTIME RF: 0 Discharge Orders: Discharge Order (Routine); Ordered 09/16/21 Ordered By: Alfie Barraza Referrals: Theron Cadena DO [Physician] - 1 month Discharge Diet: Regular Discharge Activity: Resume usual activity Patient Instructions: GI Discharge Instructions, Opioid Safety Discharge Attestations Time Spent in Discharge Care*: less than 30 min Specific Discharge Activities: educating patient, educating and/or supporting family/caregiver, discussing with pcp/other providers, discussing with case preparer and liner/social workers/dc planners, documenting/other paperwork and evaluating patient/reviewing data Status at Discharge: Cognitive status at discharge: cognitively intact , Behavioral status at discharge: cooperative , Functional status at discharge: independent ambulation Overall status at discharge: patient is back to baseline Quality Metrics Clinical Quality Measures During this hospital stay, did patient experience: None Coding Level of Care Code Acute [facility] DC note Exam Detailed Diagnoses Melena K92.1
--- NOTE | 2021-09-16 11:07 | PC.CHAP ---
Pastoral Care Encounter/Spiritual Assessment Type of Contact [] Declined reservations and ticketing agent visit [] Patient/Family/Request visit [] Outpatient visit [] Follow-up visit [] Physician referral [] Code/Alert [x] Routine visit [] Staff referral [] Actively dying [] Patient sleeping [] Family support [] [] Out of room [] Palliative care [] [x] Receiving care in room [] Pre-surgical visit [] Trauma [] Long length of stay [] ICU visit [] Other: Relational/Emotional Strength [x] Patient feels connected with others/family/visitors/staff [] Distress [] Loneliness/isolation [] Abandonment Spirituality of Patient [x] Person of Megan [] Attends Anglican of their Megan [x] Believes in Prayer [] Reads Bible or Yazidi materials [] There are Spiritual issues to be addressed Rope Making Machine Operator Interventions [x] Prayer [x] Active listening [x] Non-anxious presence [x] Spiritual/emotional support [] Crisis/trauma care [x] Spiritual counseling [] Bereavement support [] Provided bereavement packet [] Provided Bible/devotional materials [] Provided toy/stuffed animal, coloring book to patient or family member [] Provided Communion [] Anointing/[place] [] Salvation [x] Completed spiritual assessment [] Other: Impact on Illness or Injury [] Angry [] Fearful [x] Anxious [] Often cries [] Exhaustion [] Unable to work [] Unable to attend anabaptist [] Unable to walk/stand [] Unable to read [] Unable to drive [] Unable to eat/drink [] Unable to sleep [] Unable to be with family [] Patient intubated [] Other: Summary stoped bleeding feels good has a good attitude going home today Time spent with patient 10 mins
--- NOTE | 2021-09-16 11:19 | PC.NURSE ---
Discharge Note Patient discharged to personal home via private vehicle accompanied by his . Discharge instructions reviewed with patient and/or business services representative. Belongings/home medications returned.
--- NOTE | 2021-09-16 14:06 | ANE.PACU2 ---
Inpatient post-anesthesia follow up: Airway intact: Yes Vital signs: Temperature 98.3 F Pulse Rate [Right Radial] 67 Pulse Rate 65 Respiratory Rate 18 Blood Pressure [Le ft Arm] 146/100 Blood Pressure 169/90 Pulse Oximetry 97 Oxygen Delivery Me thod Room Air Oxygen Flow Rate 3 Fraction of Inspir ed Oxygen Hydration adequate: Yes Nausea and vomiting: No Pain level: 1 Mental status: Baseline
== END 2021-09-16 11:05 | disposition home or self-care (01) ==
LOC: ER 14:44 → MEDSURG 09-16 07:45
PROVIDERS: Surgery; Admitting Provider Student in an Organized Health Care Education/Training Program; Emergency Provider Emergency Medicine; PCP Nurse Practitioner Family; Visit Provider Internal Medicine
PROC: 0DJ08ZZ Inspection of Upper Intestinal Tract, Via Natural or Artificial Opening Endoscopic (ICD-10-PCS; CPT 43235; principal; 2021-09-16 07:15)
DX: K92.1 Melena (principal); I10 Essential (primary) hypertension; N40.1 Benign prostatic hyperplasia with lower urinary tract symptoms; E04.9 Nontoxic goiter, unspecified; Z79.82 Long term (current) use of aspirin; Z87.891 Personal history of nicotine dependence; Z79.899 Other long term (current) drug therapy
CPT/HCPCS: 36415; 43235; 70491; 80053; 80061; 82565; 82728; 83036; 83540; 83550; 83690; 84443; 84520; 85025; 85610; 85730; 86850; 86900; 94664; 96361; 96374; 96375; 99285; C9113; G0378; J2704; J7030

== ENCOUNTER 2021-10-12 14:42 | Outpatient (CLI) | payer MEDICARE, SELFPAY ==
--- NOTE | 2021-10-12 14:54 | US_ITS ---
WS: [id number] THYROID ULTRASOUND HISTORY: E04.9 - Nontoxic goiter, unspecified COMPARISON: None available. Right lobe: 4.4 cm x 5.2 cm x 7.3 cm (w x ap x l). Volume: 86.1 cm3. Markedly enlarged thyroid is lobulated and heterogeneous with variable echogenicity. There are a few cystic areas. No well-defined mass. No increased vascularity. Left lobe: 2.5 cm x 3.6 cm x 5.5 cm (w x ap x l). Volume: 25.9 cm3. Enlarged lobulated heterogeneous gland. There are a few scattered cystic areas. No increased vascular ity. Isthmus: 0.5 cm. US/US thyroid [id number] IMPRESSION: Enlarged nodular thyroid consistent with a multinodular goiter.
== END 2021-10-12 14:43 | disposition home or self-care (01) ==
LOC: RAD 14:45
PROVIDERS: PCP Nurse Practitioner Family; Visit Provider Nurse Practitioner Family
DX: E04.9 Nontoxic goiter, unspecified (principal)
CPT/HCPCS: 76536

== ENCOUNTER → 2021-11-11 10:23 | Outpatient (BNVA) | payer MEDICARE, SELFPAY | PROVIDERS: PCP Nurse Practitioner Family; Referring Provider Nurse Practitioner Family; Visit Provider Internal Medicine | DX: E04.1 Nontoxic single thyroid nodule (principal); E04.9 Nontoxic goiter, unspecified; F17.200 Nicotine dependence, unspecified, uncomplicated | CPT/HCPCS: 99204 ==

== ENCOUNTER 2022-05-02 12:26 | Outpatient (CLI) | payer MEDICARE, SELFPAY | END 2022-05-02 12:27 | disposition home or self-care (01) | LOC: RAD 12:28 | PROVIDERS: PCP Nurse Practitioner Family; Visit Provider Urology | DX: R97.20 Elevated prostate specific antigen [PSA] (principal); N40.1 Benign prostatic hyperplasia with lower urinary tract symptoms; N13.8 Other obstructive and reflux uropathy | CPT/HCPCS: 36415; 51798; 81003; 84153; 99213 ==

== ENCOUNTER → 2022-06-28 16:50 | Outpatient (BNVA) | payer MEDICARE, SELFPAY | PROVIDERS: PCP Nurse Practitioner Family; Visit Provider Nurse Practitioner Family | DX: I10 Essential (primary) hypertension (principal); E04.9 Nontoxic goiter, unspecified; Z68.31 Body mass index [BMI] 31.0-31.9, adult | CPT/HCPCS: 80053; 80061 ==

== ENCOUNTER → 2023-01-23 09:28 | Outpatient (BNVA) | payer MEDICARE, SELFPAY | PROVIDERS: PCP Nurse Practitioner Family; Visit Provider Nurse Practitioner Family | DX: I10 Essential (primary) hypertension (principal) | CPT/HCPCS: 80053; 80061 ==

== ENCOUNTER 2023-04-25 14:13 | Outpatient (CLI) | payer MEDICARE, SELFPAY ==
[2023-04-25 15:33] LABS: Prostate Specific AG Urology 2.47 ng/mL (0-4)
== END 2023-04-25 14:14 | disposition home or self-care (01) ==
PROVIDERS: PCP Nurse Practitioner Family; Visit Provider Urology
DX: R97.20 Elevated prostate specific antigen [PSA] (principal)
CPT/HCPCS: 36415; 84153

== ENCOUNTER → 2023-05-02 11:08 | Outpatient (BNVA) | payer MEDICARE, SELFPAY | PROVIDERS: PCP Nurse Practitioner Family; Visit Provider Urology | DX: N40.1 Benign prostatic hyperplasia with lower urinary tract symptoms; R97.20 Elevated prostate specific antigen [PSA]; N13.8 Other obstructive and reflux uropathy | CPT/HCPCS: 51798; 81003; 99213 ==

== ENCOUNTER → 2023-07-25 16:43 | Outpatient (BNVA) | payer MEDICARE, SELFPAY | PROVIDERS: PCP Nurse Practitioner Family; Visit Provider Nurse Practitioner Family | DX: I10 Essential (primary) hypertension (principal) | CPT/HCPCS: 80053; 80061 ==

== ENCOUNTER → 2024-01-23 09:35 | Outpatient (BNVA) | payer MEDICARE, SELFPAY | PROVIDERS: PCP Nurse Practitioner Family; Visit Provider Nurse Practitioner Family | DX: E04.9 Nontoxic goiter, unspecified (principal); I10 Essential (primary) hypertension; E55.9 Vitamin D deficiency, unspecified | CPT/HCPCS: 80053; 80061; 82306; 84443 ==

== ENCOUNTER → 2024-03-04 09:19 | Outpatient (BNVA) | payer MEDICARE, SELFPAY | PROVIDERS: PCP Nurse Practitioner Family; Visit Provider Nurse Practitioner Family | DX: R79.89 Other specified abnormal findings of blood chemistry (principal) | CPT/HCPCS: 84443 ==

== ENCOUNTER → 2024-06-10 10:45 | Outpatient (BNVA) | payer MEDICARE, SELFPAY | PROVIDERS: PCP Nurse Practitioner Family; Visit Provider Nurse Practitioner Family | DX: R06.02 Shortness of breath (principal); I77.810 Thoracic aortic ectasia | CPT/HCPCS: 71046 ==

== ENCOUNTER → 2024-08-07 09:20 | Outpatient (BNVA) | payer MEDICARE, SELFPAY | PROVIDERS: PCP Nurse Practitioner Family; Visit Provider Nurse Practitioner Family | DX: I10 Essential (primary) hypertension (principal) | CPT/HCPCS: 80053; 80061 ==

== ENCOUNTER → 2025-02-10 08:15 | Outpatient (BNVA) | payer MEDICARE, SELFPAY | PROVIDERS: PCP Nurse Practitioner Family; Visit Provider Family Medicine | DX: E03.9 Hypothyroidism, unspecified (principal); E04.9 Nontoxic goiter, unspecified; E04.1 Nontoxic single thyroid nodule; R53.82 Chronic fatigue, unspecified | CPT/HCPCS: 80053; 82607; 82746; 84439; 84443; 84481; 85025 ==

== ENCOUNTER → 2025-06-25 08:59 | Outpatient (BNVA) | payer MEDICARE, SELFPAY | PROVIDERS: PCP Nurse Practitioner Family; Visit Provider Nurse Practitioner Family | DX: E78.00 Pure hypercholesterolemia, unspecified (principal); R79.89 Other specified abnormal findings of blood chemistry | CPT/HCPCS: 80053; 80061 ==

== ENCOUNTER → 2025-09-23 10:00 | Outpatient (BNVA) | payer MEDICARE, SELFPAY | PROVIDERS: PCP Nurse Practitioner Family; Visit Provider Nurse Practitioner Family | DX: E55.9 Vitamin D deficiency, unspecified (principal); I10 Essential (primary) hypertension; E03.9 Hypothyroidism, unspecified; R79.89 Other specified abnormal findings of blood chemistry | CPT/HCPCS: 80053; 80061; 82306; 84443; 85025 ==